=== PATIENT | male | born 1960 | race Caucasian/White ===

== ENCOUNTER 2018-06-11 04:19 | Emergency (ER) | payer MEDICARE, OTHER ==
[~2018-06-11] VITALS: Ht 182.9 cm; Wt 81.8 kg
[2018-06-11 04:31] VITALS: BP 168/101
[2018-06-11] MEDS ORDERED: SERO50TA PO (04:51)
[2018-06-11] MEDS ORDERED: VENTAER INH (04:51)
[2018-06-11] MEDS ORDERED: QUET1TAB9 PO (04:51)
[2018-06-11] MEDS ORDERED: SERO1TAB3 PO (04:51)
[2018-06-11] MEDS ORDERED: OXYC-517 PO (04:51)
[2018-06-11] MEDS ORDERED: OMEP20CA3 PO (04:51)
[2018-06-11] MEDS ORDERED: VALI5TAB PO (04:51)
== END 2018-06-11 05:45 | disposition left against medical advice (07) ==
LOC: M ED 04:19
DX: G89.29 Other chronic pain (principal); M54.9 Dorsalgia, unspecified; Z53.20 Procedure and treatment not carried out because of patient's decision for unspecified reasons

== ENCOUNTER → 2024-07-05 | Outpatient (REF) | payer OTHER, MEDICARE ==
[~2024-07-05] MED LIST: OMEP1CAP73 PO; OXYC-517 PO; QUET200T2 PO; SERO1TAB3 PO; SERO50TA PO; VALI5TAB PO; VENTAER INH
== END ==
LOC: M SMT 13:01
PROVIDERS: ATTEND Urology
DX: R97.20 Elevated prostate specific antigen [PSA] (principal)

== ENCOUNTER → 2024-12-04 | Outpatient (CLI) | payer OTHER ==
[~2024-12-04] VITALS: Ht 180.3 cm; Wt 91.2 kg
[~2024-12-04] MED LIST changes: +ATIV1TAB7 PO; +CIPR750T2 PO
[2024-12-04 10:08] VITALS: BP 148/80; TEMP 97.5; O2SAT 99
[2024-12-04] MEDS: LIDOCAINE 2% MDV 20 ML VIAL XX ONE (10:13)
[2024-12-04] MEDS: LIDOCAINE VISCOUS 2% SOLN 15 ML UDC XX ONE (10:13)
[2024-12-04 10:33] VITALS: BP 160/108; TEMP 96.8; O2SAT 99
== END ==
LOC: M ONCR 09:26
PROVIDERS: ATTEND General Practice
DX: C61 Malignant neoplasm of prostate (principal)
CPT/HCPCS: 55874; 55876; A4648; C1889

== ENCOUNTER 2024-12-16 10:53 | Outpatient (RCR) | payer OTHER | END 2024-12-26 | LOC: M ONCR 10:53 | PROVIDERS: ATTEND General Practice | DX: Z51.0 Encounter for antineoplastic radiation therapy (principal); C61 Malignant neoplasm of prostate ==

== ENCOUNTER 2025-01-07 11:20 | Outpatient (RCR) | payer OTHER ==
[~2025-01-07 11:20] MED LIST changes: +FLUO0.0112 TOP; +LIDO30CR18 TOP
== END 2025-01-26 ==
LOC: M ONCR 11:20
PROVIDERS: ATTEND General Practice
DX: Z51.0 Encounter for antineoplastic radiation therapy (principal); C61 Malignant neoplasm of prostate